=== PATIENT | male | born 1950 | race Caucasian/White ===

== ENCOUNTER → 2016-11-29 | Outpatient (CLI) | payer MEDICARE, BC ==
[~2016-11-29] MED LIST: COUMADIN PO; COUMADIN3 MG PO; IMURAN50 MG PO; LOPRESSOR PO; NORVASC PO; OMEPRAZOLE40 M1 PO; OMEPRAZOLE40 MG PO; PREDNISONE PO; PREDNISONE5 M1 PO; ZOCOR PO
--- NOTE | ~2016-11-29 | MR18 ---
[facility] A Service of [facility] RADIOLOGY TEXT RESULTS PATIENT: DELORIS PEREZ LOCATION: [facility] : 50 UNIT #: [id number] AGE: [address]: Marcos Carey MD SEX: M ORDER DR: [id number] [address] [address] [id number] O MR#: [id number] Acc #: [id number] NAME: DELORIS PEREZ : 1950 SEX: M STUDY DATE/TIME: 11/29/2016 15:45 UNIT: [facility] ROOM: STUDY DESCRIPTION: MR Brain Wo Contrast Attending Physician: Marcso Carey M.D. Referring Physician: Marcos Carey M.D. Ordering Physician: Marcos Carey M.D. Primary Care Physician: Marcos Carey M.D. MRI CENTER REPORT This report is preliminary unless electronic signature is present. EXAM MRI of the brain without contrast, 11/29/2016 COMPARISON None HISTORY Increasing headaches for 10 days. FINDINGS Multisequence multiplanar imaging of the brain was obtained without contrast. Bifrontal craniotomy is seen. Hyperintense T2-signal is seen in the periventricular and subcortical white matter. No acute intracranial hemorrhage, space-occupying mass, mass effect, midline shift or hydrocephalus. Vascular flow voids of the major cerebral arteries and dural venous sinuses are not obstructed in these thicker slices. Status post bifrontal craniotomy. Scattered hyperintense T2-signal lesions are noted in the subcortical and periventricular white matter. Thick slices through the sella with the pituitary gland, pineal region and upper cervical spine are within normal limits. Mild S-shaped nasal septal deviation is seen. Paranasal sinuses, orbits and the ocular structures and mastoids are unremarkable. IMPRESSION 1. Bifrontal craniotomy is noted. 2. Scattered hyperintense T2-signal few lesions are noted in the subcortical and periventricular white matter measuring less than a centimeter in size. They are also seen in the left cerebellar hemisphere. Based on age and statistics they are likely related to mild chronic microvascular ischemic change or migraine. 3. Thick slices through the sella with the pituitary gland, pineal region and upper cervical spine do not demonstrate any significant abnormality. [facility] A Service of [facility] RADIOLOGY TEXT RESULTS PATIENT: DELORIS PEREZ LOCATION: [facility] : [birth year] UNIT #: [id number] AGE: [address]: Marcos Carey MD SEX: M ORDER DR: Dictated by... Lori York M.D. THIS IS AN ELECTRONICALLY VERIFIED REPORT Lori York M.D. at 11/30/2016 4:57 PM CPR/edwar TD: 11/30/2016 10:57 JOB #: [id number] MRI CENTER REPORT Page 1 of 1
== END | disposition home or self-care (01) ==
LOC: SMRI 14:27
DX: R51 Headache (principal); G93.89 Other specified disorders of brain; Z98.890 Other specified postprocedural states
CPT/HCPCS: 70551

== ENCOUNTER 2017-02-23 11:25 | Observation (INO) | payer MEDICARE, BC ==
--- NOTE | ~2017-02-23 | CO ---
Unit #: [id number] #: [id number] Patient: DELORIS PEREZ [id number] [address] [place], [place] [address] [id number] I MR#: [id number] NAME: DELORIS PEREZ ROOM: 55 Age: 66 Sex: M Admission Date: 02/23/2017 : 1950 Attending Physician: Latonia Roach M.D. Primary Care Physician: Marcos Carey M.D. CONSULTATION REPORT REASON FOR CONSULTATION Chest pain. HISTORY OF PRESENT ILLNESS The patient is a 66-year-old male known to Dr. Merchant. In 08/2013 the patient's echo showed mild concentric LVH, mild AF, mild aortic root dilatation, mild MR with an ejection fraction of 60%-65%. Additional past medical history includes hypertension, hyperlipidemia, congenital kidney disease and is status post renal transplant from . He has had viral meningitis from a rabies bite as a child. He does endorse that he has had a history of GI bleed. He also endorses a history of a DVT 12-14 years ago and a history of PE approximately 10 years ago. He is on Coumadin. The patient states he rarely has a beer and does not smoke. He does endorse that he does try to avoid NSAIDs. The patient presented to the emergency department with complaints of sharp stabbing chest pains that start from the front of his chest and radiate to the back of his chest and that is worse with movement and cough. There is no shortness of breath, diaphoresis or radiation down his arm, to his neck or jaw. The patient reports that rest and not coughing make his chest pain feel better. 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 In the emergency department the patient was treated with normal saline bolus. Upon admission his blood pressure was found to be 99/72. He was also given Lovenox 100 mg subcutaneous. His INR is 1.6. Tvryz-sq-gxhw troponin was less than 0.05. EKG is unremarkable, showing sinus rhythm with PACs. Again, cardiology was consulted for chest pain. PAST MEDICAL HISTORY 1. Echo from 08/2013 shows mild concentric LVH, mild AF, mild aortic root dilatation, mild MR and ejection fraction of 60%-65%. 2. Hypertension. 3. Gastroesophageal reflux disease. 4. History of DVT 13-14 years ago. 5. History of PE 10 years ago on Coumadin. 6. Diseased-congenital kidney disease, status post renal transplant in 1979. 7. Viral meningitis from rabies bite as a child. 8. History of GI bleed. 9. The patient rarely has a beer. 10. Endorses multiple knee and hip surgeries. PAST SURGICAL HISTORY 1. Right kidney transplant. Unit #: [id number] #: [id number] Patient: DELORIS PEREZ 2. Bilateral thumb surgeries. 3. Right hip replacement times two. 4. Left knee scope. SOCIAL HISTORY The patient endorses that he exercises three to four times a week at the gym. He denies tobacco or illicit drug abuse. He states he rarely has a beer. FAMILY HISTORY The patient endorses that his father had a myocardial infarction and at the age of 69. ALLERGIES No known drug allergies. HOME MEDICATIONS 1. Coumadin 3 mg p.o. daily. 2. Omeprazole 40 mg p.o. b.i.d. 3. Norvasc 5 mg p.o. daily. 4. Lopressor 50 mg p.o. b.i.d. 5. Prednisone 5 mg p.o. daily. 6. Imuran 50 mg p.o. every other day. REVIEW OF SYSTEMS A 10-point review of systems has been done and otherwise negative unless indicated in the history of present illness. PHYSICAL EXAMINATION GENERAL: The patient is awake and alert, in no acute distress. VITALS: Temperature 98.2, heart rate 65, blood pressure 116/79, he is oxygenating 94%. HEENT: Head is atraumatic, normocephalic. Pupils equal, round and reactive to light. Extraocular movements are intact. No drainage from nares. NECK: Supple. Trachea midline. Normal carotid upstrokes. No thyromegaly or lymphadenopathy is appreciated. LUNGS: Clear to auscultation bilaterally. No wheezes, rales or rhonchi. HEART: S1 and S2 regular rate and rhythm. No murmurs, rubs or gallops. ABDOMEN: Soft, nontender and nondistended. Bowel sounds are positive in all four quadrants. SKIN: Warm, dry and intact without any rashes or lesions. EXTREMITIES: No clubbing, edema or cyanosis. NEUROLOGIC: The patient is alert and oriented times four. He is pleasant and conversant. No focal deficits. Cranial nerves II through XII intact. DIAGNOSTIC STUDIES LABORATORY: White blood cell count 5.6, hemoglobin 14.3, hematocrit 42.9, platelets 145, sodium 139, potassium 4, chloride 109, CO2 23, BUN 19, creatinine 0.9, glucose 121, lpqjq-si-fyod troponin less than 0.05. CARDIOVASCULAR: EKG shows (1) PACs. ASSESSMENT 1. Left anterior chest pain with cough and deep breath. Pneumonia versus atelectasis. 2. Mild aortic stenosis. 3. Hypertension. Unit #: [id number] #: [id number] Patient: DELORIS PEREZ 4. History of DVT and PE on Coumadin. 5. Subtherapeutic INR of 1.6. 6. Congenital kidney disease, status post right renal transplant in . 7. Avoids NSAIDs. 8. Nonsmoker. PLAN At this time will trend cardiac enzymes and troponin q.6 h. times 2. Will check a lipid panel and TSH, BMP and magnesium in the morning. Will perform daily PT/INR. Will do a stat d-dimer. The patient will need a CT scan of his chest, no contrast, to rule out pneumonia versus atelectasis in the left lower extremity. Will start the patient on (1) 100 mg p.o. t.i.d. The patient will need Lovenox 1 mg/kg subcutaneous now and b.i.d. Will increase the patient's Coumadin dose to 5 mg for today and tomorrow. Lovenox will need to be stopped when INR is above 2.5. Dictated by... Elena Aguirre A.P.R.N. AM/federica TD: 02/24/2017 06:48 JOB #: [id number] CONSULTATION REPORT Page 1 of 1 X Elena Aguirre APRN X CONSULTATION REPORT
--- NOTE | ~2017-02-23 | CT57 ---
[facility] A Service of [facility] RADIOLOGY TEXT RESULTS PATIENT: DELORIS PEREZ LOCATION: [facility] 551-01 : [birth year] UNIT #: [id number] AGE: [address]: Latonia Roach MD SEX: M ORDER DR: [id number] [facility] [address] [facility] [place], [place] [address] [id number] I MR#: [id number] Acc #: [id number] NAME: DELORIS PEREZ : 1950 SEX: M STUDY DATE/TIME: 02/23/2017 17:49 UNIT: [facility] ROOM: [facility] STUDY DESCRIPTION: CT Chest Wo Cont Attending Physician: John Domínguez M.D. Ordering Physician: Jasson Sifuentes M.D. Primary Care Physician: Marcos Carey M.D. MEDICAL IMAGING REPORT This report is preliminary unless electronic signature is present EXAM CT scan of the chest without contrast, 02/23/2017. HISTORY Left-side chest pain radiating to the back, hurts when coughing. Symptoms began today, sputum production today. TECHNIQUE Spiral CT was performed through the chest without intravenous contrast administration as per clinician request. This CT exam was performed with one or more of the following radiation dose reduction techniques: automatic exposure control, adjustment of mA and/or kV according to patient size, and iterative reconstruction. FINDINGS The lungs are clear bilaterally and demonstrate no pulmonary mass or acute infiltrate. There is no significant thoracic adenopathy. There are no pleural effusions. The heart is normal in size. There are no pleural effusions. Images of the upper abdomen are unremarkable. IMPRESSION Negative noncontrast chest CT. Dictated by... Mj Rodriguez M.D. THIS IS AN ELECTRONICALLY VERIFIED REPORT Mj Rodriguez M.D. at 02/24/2017 2:15 PM ARTEM/salas [facility] A Service of [facility] RADIOLOGY TEXT RESULTS PATIENT: DELORIS PEREZ LOCATION: [facility] 551-01 : [birth year] UNIT #: [id number] AGE: [address]: Latonia Roach MD SEX: M ORDER DR: TD: 02/24/2017 03:15 JOB #: [id number] MEDICAL IMAGING REPORT Page 1 of 1 COPY
--- NOTE | ~2017-02-23 | CR72 ---
[facility] A Service of [facility] & [facility] RADIOLOGY TEXT RESULTS PATIENT: DELORIS PEREZ LOCATION: [facility] 55- : 50 UNIT #: [id number] AGE: [address]: Latonia Roach MD SEX: M ORDER DR: [id number] [facility] [address] [place], [place] [address] [id number] I MR#: [id number] Acc #: [id number] NAME: DELORIS PEREZ : 1950 SEX: M STUDY DATE/TIME: 02/23/2017 12:34 UNIT: [facility] ROOM: [facility] STUDY DESCRIPTION: CR Chest Single View Portable Attending Physician: John Domínguez M.D. Ordering Physician: Sukumar Lanier M.D. Primary Care Physician: Marcos Carey M.D. MEDICAL IMAGING REPORT This report is preliminary unless electronic signature is present EXAM Frontal chest, 02/23/2017. INDICATION 66-year-old male with chest pain, left-sided chest pain that began today. Hypertension, short of breath. TECHNIQUE Frontal chest compared with 08/18/2015. FINDINGS The heart is borderline in size and stable. The vascularity is normal and the lungs appear clear. There is old healed granulomatous disease. No pneumothorax. IMPRESSION Borderline cardiomegaly and old healed granulomatous disease, otherwise negative frontal chest. Dictated by... Jorge Gutierrez M.D. THIS IS AN ELECTRONICALLY VERIFIED REPORT Jorge Gutierrez M.D. at 02/24/2017 8:47 AM JAZMYNE/salas TD: 02/23/2017 22:46 JOB #: [id number] MEDICAL IMAGING REPORT Page 1 of 1 COPY
--- NOTE | ~2017-02-23 | HP ---
Unit #: [id number] #: [id number] Patient: DELORIS PEREZ [id number] [address] [place], [place] [address] [id number] I MR#: [id number] NAME: DELORIS PEREZ ROOM: 551 Age: 66 Sex: M Admission Date: 02/23/2017 : 1950 Attending Physician: April Domínguez M.D. Primary Care Physician: Marcos Carey M.D. HISTORY AND PHYSICAL CHIEF COMPLAINT Chest pain. HISTORY OF PRESENT ILLNESS The patient is a 66-year-old male with a history of a hypertension and GERD and history of DVTs and PEs, on Coumadin for the last 10 years, presented to the emergency room complaining of the chest pain. The patient stated the pain has been sharp and is mainly in the left axillary region and is radiating to the left neck. The pain is aggravated with the movements and deep breath. The patient also complains of the nonproductive cough. The pain has been started this morning and the pain is relieved with the rest. The patient is being admitted for the above reasons. The patient also status post a renal transplant back in , denies any fever, chills, nausea or vomiting, or diaphoresis. PAST MEDICAL HISTORY History of a hypertension and GERD, history of DVTs and PEs, viral meningitis and GI bleed. PAST SURGICAL HISTORY History of a right kidney transplant and right hip replacement x2 and left knee scope. FAMILY HISTORY Positive for the MIs in the family. ALLERGIES No known drug allergies. SOCIAL HISTORY Quit smoking many years ago, rare beer and no illicit drug abuse. HOME MEDICATIONS Patient is on Coumadin, omeprazole, Norvasc, Lopressor and prednisone and Imuran. REVIEW OF SYSTEMS Fourteen-point review of symptoms performed and only pertinent positive findings as described above, remaining are negative. PHYSICAL EXAMINATION GENERAL APPEARANCE: On examination the patient is lying on a bed not in acute distress. Unit #: [id number] #: [id number] Patient: DELORIS PEREZ VITAL SIGNS: Temperature 98.2, pulse 68, respiratory rate 16, blood pressure 99/72, sating 98% at room air. HEENT: Head atraumatic and normocephalic. Pupils equal, round and reacting to light and accommodation. LUNGS: Decreased air entry at the bases. No rhonchi. No wheezing. HEART: Regular rate and rhythm. ABDOMEN: Soft, positive bowel sounds. EXTREMITIES: No cyanosis. No clubbing. NEUROLOGIC: Alert, awake, oriented. No gross focal motor deficit. DIAGNOSTIC STUDIES LABORATORY DATA: Troponin is less than 0.03 and CK total is 114. Lipid profile: Cholesterol 217, LDL 144. D-dimer is 533. TSH is 0.86. Sodium 139, potassium 4, chloride 109, bicarb 23, glucose 121, BUN 19, creatinine 0.9, AST 28, ALT 23, troponin les than 0.05 and INR is 1.6, WBC 5.6, hemoglobin 14.3, hematocrit is 42.9, platelets 145. IMAGING: Patient had a CT of the chest without contrast. That is pending. ASSESSMENT 1. Chest pain, to rule out the ischemia/infectious etiology/recurrent pulmonary emboli. 2. History of a kidney transplant. 3. History of a pulmonary embolism and deep venous thromboses PLAN Plan to admit the patient to the observation with the telemetry. Cardiology consult, serial troponins and stress test if needed per Cardiology and follow with the CT chest to rule out the anemia versus atelectasis and continue with the Lovenox and Coumadin for subtherapeutic INR. Dictated by Evan Cote/sam TD: 02/23/2017 20:21 JOB #: [id number] HISTORY AND PHYSICAL Page 1 of 1 X APRIL DOMÍNGUEZ MD X HISTORY AND PHYSICAL
--- NOTE | ~2017-02-23 | EKG ---
PATIENT: DELORIS PEREZ UNIT #: [id number] Ventricular Rate: 68 BPM Atrial Rate: 68 BPM P-R Interval: 158 ms QRS Duration: 94 ms Q-T Interval: 426 ms QTC Calculation(Bezet): 452 ms P [place]: 15 degrees Calculated R [place]: -35 degrees Calculated T [place]: -5 degrees Diagnosis Line: Sinus rhythm with Premature atrial complexes Diagnosis Line: Left axis deviation Diagnosis Line: Nonspecific ST abnormality Diagnosis Line: Abnormal ECG Diagnosis Line: No previous ECGs available Diagnosis Line: Confirmed by SANTO GOLD MD ([id number]) on Diagnosis Line: 02/25/2017 11:05:33 AM INTERPRETING MD: ASIF JOLLEY
--- NOTE | ~2017-02-23 | CR63 ---
[facility] A Service of [facility] RADIOLOGY TEXT RESULTS PATIENT: DELORIS PEREZ LOCATION: [facility] 551-01 : [birth year] UNIT #: [id number] AGE: [address]: Latonia Roach MD SEX: M ORDER DR: [id number] [facility] [address] [facility]. [place], [place] [address] [id number] I MR#: [id number] Acc #: [id number] NAME: DELORIS PEREZ : 1950 SEX: M STUDY DATE/TIME: 02/24/2017 9:30 UNIT: [facility] ROOM: [facility] STUDY DESCRIPTION: CR Chest 2 View Attending Physician: Latonia Roach M.D. Ordering Physician: Latonia Roach M.D. Primary Care Physician: Marcos Carey M.D. MEDICAL IMAGING REPORT This report is preliminary unless electronic signature is present EXAM Two-view chest 02/24/2017 INDICATIONS 66-year-old male with shortness of air. Correlation with scheduled VQ scan today. Hypertension. Left-sided chest pain. Symptoms began today. No known injury. TECHNIQUE Two-view chest was performed. COMPARISON Correlation is made with chest CT 02/23/2017 and chest x-ray 02/23/2017. FINDINGS Cardiac silhouette is borderline enlarged. Vascularity is unremarkable. There is old healed granulomatous disease. There is pulmonary hyperinflation. The lungs are clear. Mild thoracic spondylosis. No pneumothorax. IMPRESSION 1. Borderline cardiomegaly and old healed granulomatous disease. 2. Pulmonary hyperinflation. Otherwise negative. Dictated by... Jorge Gutierrez M.D. THIS IS AN ELECTRONICALLY VERIFIED REPORT Jorge Gutierrez M.D. at 02/24/2017 4:10 PM Lisbeth TD: 02/24/2017 15:50 [facility] A Service of [facility] RADIOLOGY TEXT RESULTS PATIENT: DELORIS PEREZ LOCATION: [facility] 551-01 : [birth year] UNIT #: [id number] AGE: [address]: Latonia Roach MD SEX: M ORDER DR: JOB #: [id number] MEDICAL IMAGING REPORT Page 1 of 1 COPY
--- NOTE | ~2017-02-23 | NM69 ---
[facility] A Service [facility] RADIOLOGY TEXT RESULTS PATIENT: DELORIS PEREZ LOCATION: [place] [address] : [birth year] UNIT #: [id number] AGE: [address]: Latonia Roach MD SEX: M ORDER DR: [id number] [address] [address] [id number] I MR#: [id number] Acc #: [id number] NAME: DELORIS PEREZ : 1950 SEX: M STUDY DATE/TIME: 02/24/2017 9:55 UNIT: B ROOM: [facility] STUDY DESCRIPTION: NM Pulm Vent and Perf Attending Physician: Latonia Roach M.D. Ordering Physician: Latonia Roach M.D. Primary Care Physician: Marcos Carey M.D. MEDICAL IMAGING REPORT This report is preliminary unless electronic signature is present EXAM Ventilation, perfusion lung scan, 02/24/17 HISTORY Left side chest pain for several days. Previous history of pulmonary embolism. PROCEDURE Study performed with 33.9 mCi of Tc-99m DTPA aerosol by inhalation followed by 6 mCi of Tc-99m MAA IV. FINDINGS The accompanying radiograph same date shows no acute disease. Ventilation images are normal. Perfusion images are normal. IMPRESSION Normal ventilation perfusion lung scan. Dictated by... Michael Lacy M.D. THIS IS AN ELECTRONICALLY VERIFIED REPORT Michael Lacy M.D. at 02/25/2017 10:53 AM ÁNGEL/austin TD: 02/24/2017 19:17 JOB #: [id number] MEDICAL IMAGING REPORT [facility] A Service [facility] RADIOLOGY TEXT RESULTS PATIENT: DELORIS PEREZ LOCATION: [place] [address] : [birth year] UNIT #: [id number] AGE: [address]: Latonia Roach MD SEX: M ORDER DR: Page 1 of 1 COPY
[~2017-02-23 11:25] MED LIST changes: -COUMADIN3 MG PO; -OMEPRAZOLE40 M1 PO; -PREDNISONE5 M1 PO
[2017-02-23 12:09] LABS: BASOPHIL# 0.1 X10e3 (0-0.3); EOSINOPHIL# 0.1 X10e3 (0-0.7); EOSINOPHIL% 1.6 % (0.0-7.0); HEMATOCRIT 42.9 % (38.0-50.0); HEMOGLOBIN 14.3 gm/dL (13.0-16.0); LYMPHOCYTE# 1.6 X10e3 (1.0-3.5); MEAN CELL VOLUME 90.2 FL (83-96); MEAN CORPUSCULAR HEMOGLOBIN 29.9 PG (28-34); MEAN CORPUSCULAR HGB CONC 33.2 g/dL (30-36); MEAN PLATELET VOLUME 9.7 FL (6.5-11.5); MONOCYTE# 0.6 X10e3 (0-1.0); MONOCYTE% 11.5 % (3.0-12.0); NEUTROPHIL# 3.2 X10e3 (1.5-7.1); NEUTROPHIL% 56.9 % (40-75); PLATELET COUNT 145 X10e3 (140-420); RED BLOOD COUNT 4.76 X10e (3.90-5.60); WHITE BLOOD COUNT 5.6 X10e3 (4.0-10.5)
[2017-02-23 12:11] LABS: DIFF IND NO
[2017-02-23 12:21] LABS: INR 1.6; PARTIAL THROMBOPLASTIN TIME 30.4 SECONDS (23.5-31.3); PROTHROMBIN TIME (PATIENT) 17.5 SECONDS (10.0-11.7)
[2017-02-23 12:31] LABS: POC - CKMB <1.0 ng/mL (0.0-7.9); POC - TROPONIN <0.05 ng/mL (<=0.05)
[2017-02-23 12:42] LABS: ALBUMIN SERUM 3.7 g/dL (3.5-5.0); ALKALINE PHOSPHATASE 38 U/L (32-92); ALT (SGPT) 23 U/L (10-40); AST (SGOT) 28 U/L (10-42); BILIRUBIN,TOTAL 0.6 mg/dL (0.2-2.0); BLOOD UREA NITROGEN 19 mg/dL (9-23); BUN/CREATININE RATIO 21.11; CALCIUM SERUM 8.8 mg/dL (8.4-10.2); CARBON DIOXIDE 23 mmol/L (22-31); CHLORIDE 109 mmol/L (100-111); CREATININE SERUM 0.9 mg/dL (0.6-1.4); GLOM FILT RATE Estimated 88.7 mL/min (>60); GLUCOSE FASTING 121 mg/dL (70-110); PROTEIN TOTAL SERUM 6.5 g/dL (6.0-8.3); SODIUM 139 mmol/L (135-145)
[2017-02-23 12:46] LABS: BILIRUBIN, DIRECT <0.1 mg/dL (0.0-0.2); BILIRUBIN,INDIRECT 0.5 mg/dL (0.0-0.9)
[2017-02-23] MEDS ORDERED: OMEPRAZOLE40 M1 PO (13:04)
[2017-02-23] MEDS ORDERED: COUMADIN3 MG PO (13:04)
[2017-02-23] MEDS ORDERED: PREDNISONE5 M1 PO (13:05)
[2017-02-23] MEDS ORDERED: NORVASC PO (13:05)
[2017-02-23] MEDS ORDERED: LOPRESSOR PO (13:05)
[2017-02-23] MEDS ORDERED: IMURAN50 MG PO (13:06)
[2017-02-23 14:36] LABS: POC - CKMB <1.0 ng/mL (0.0-7.9); POC - TROPONIN <0.05 ng/mL (<=0.05)
[2017-02-23 16:09] LABS: CHOLESTEROL 217 mg/dL (0-200); HDL CHOLESTEROL 50 mg/dL (29-75); LDL/HDL RATIO 3 RATIO (0-4); TRIGLYCERIDES 113 mg/dL (10-160)
[2017-02-23 16:10] LABS: LDL CHOLESTEROL 144 mg/dL (-130)
[2017-02-23 17:06] LABS: %MB 1.5 % (0.0-4.0); MB 1.7 ng/ml
[2017-02-23 21:27] LABS: %MB 1.8 % (0.0-4.0)
[2017-02-24 01:51] LABS: HEMATOCRIT 41.3 % (38.0-50.0); HEMOGLOBIN 13.8 gm/dL (13.0-16.0); MEAN CELL VOLUME 89.9 FL (83-96); MEAN CORPUSCULAR HGB CONC 33.4 g/dL (30-36); MEAN PLATELET VOLUME 9.3 FL (6.5-11.5); RED BLOOD COUNT 4.6 X10e (3.90-5.60); WHITE BLOOD COUNT 6.3 X10e3 (4.0-10.5)
[2017-02-24 02:05] LABS: INR 1.8; PROTHROMBIN TIME (PATIENT) 19.4 SECONDS (10.0-11.7)
[2017-02-24 02:19] LABS: BUN/CREATININE RATIO 18.88; CALCIUM SERUM 8.9 mg/dL (8.4-10.2); CREATININE SERUM 0.9 mg/dL (0.6-1.4); GLOM FILT RATE Estimated 88.7 mL/min (>60); MAGNESIUM 1.7 mg/dL (1.6-3.0)
[2017-02-24 02:42] LABS: %MB 1.8 % (0.0-4.0); MB 1.9 ng/ml
== END 2017-02-24 16:42 | disposition home or self-care (01) ==
LOC: CED 11:25 → CEDOF 13:28 → CED 14:04 → CEDOF 14:04 → C5B 15:33 → CEDOF 15:33 → C5B 15:33
PROVIDERS: Emergency Medicine; Internal Medicine; Internal Medicine Cardiovascular Disease
DX: R07.89 Other chest pain (principal); I35.0 Nonrheumatic aortic (valve) stenosis; I51.7 Cardiomegaly; I10 Essential (primary) hypertension; J84.10 Pulmonary fibrosis, unspecified; K21.9 Gastro-esophageal reflux disease without esophagitis; Z86.718 Personal history of other venous thrombosis and embolism; Z86.711 Personal history of pulmonary embolism; Z79.01 Long term (current) use of anticoagulants; Z87.891 Personal history of nicotine dependence; Z94.0 Kidney transplant status; Z96.641 Presence of right artificial hip joint; Z82.49 Family history of ischemic heart disease and other diseases of the circulatory system
CPT/HCPCS: 36415; 71010; 71020; 71250; 78582; 80048; 80061; 80076; 82308; 82550; 82553; 83735; 84443; 84484; 85025; 85027; 85379; 85610; 85730; 93005; 96360; 96372; 99285; A9540; A9567; G0378; J1650